=== PATIENT | female | born 1965 | race Caucasian/White ===

== ENCOUNTER → 2016-09-08 | Outpatient (CLI) | payer BC ==
--- NOTE | 2016-09-08 16:15 | KCIC ---
PROCEDURE Two-view chest. HISTORY Bronchitis, bilateral back pain, fever last week, smoker, on antibiotics and prednisone last week COMPARISON June 05, 2016 FINDINGS Two views of the chest are submitted. There is no new infiltrate, pleural fluid, pneumothorax. Heart size is stable, within normal limits. IMPRESSION No acute abnormality is identified by radiographs. Electronically signed by: Thong Mora MD (Sep 08, 2016 16:13:40)
== END | disposition home or self-care (01) ==
LOC: KCIC 15:43
PROVIDERS: ATTEND Physician Assistant
DX: J40 Bronchitis, not specified as acute or chronic (principal); M54.9 Dorsalgia, unspecified; R50.9 Fever, unspecified; F17.200 Nicotine dependence, unspecified, uncomplicated
CPT/HCPCS: 71020

== ENCOUNTER → 2018-04-11 | Outpatient (CLI) | payer OTHER ==
--- NOTE | 2018-04-11 14:05 | KCIC ---
CHEST PA LATERAL Clinical indications: Persistent cough for 3 weeks. Smoker for over 20 years. COMPARISON: September 08, 2016. Findings: No acute lung infiltrate or pleural effusion or pulmonary edema or lung mass or pneumothorax is seen. The heart size, pulmonary vasculature, mediastinum and both pablo are unremarkable. The osseous structures appear intact. Impression: No acute radiographic abnormality is seen. Electronically signed by: Khalif Cardenas MD (04/11/2018 2:02 PM) [facility] – [place], [place]
== END | disposition home or self-care (01) ==
LOC: KCIC 13:33
PROVIDERS: ATTEND Physician Assistant Medical
DX: F17.210 Nicotine dependence, cigarettes, uncomplicated (principal); R05 Cough
CPT/HCPCS: 71046

== ENCOUNTER → 2019-02-16 | Outpatient (CLI) | payer OTHER ==
--- NOTE | 2019-02-16 17:26 | KCIC ---
CHEST PA LATERAL, CLAVICLE RIGHT Clinical indications: Acute bronchitis. History of smoking. COMPARISON: April 11, 2018. Findings: No acute lung infiltrate or pleural effusion or pulmonary edema or lung mass or pneumothorax is seen. The heart size, pulmonary vasculature, mediastinum and both pablo are unremarkable. The osseous structures appear intact. Impression: No acute radiographic abnormality is seen. 2 VIEW STUDY OF THE RIGHT CLAVICLE Clinical indications: Subluxation of the right sternoclavicular joint. Painful right clavicle. FINDINGS: The superior-inferior position of the medial aspect of the right clavicle with respect to the sternum is symmetric with the left side. However, anterior/posterior subluxation/dislocation cannot be determined on this radiographic study but may be better evaluated with CT imaging if clinically needed. Otherwise no acute fracture is seen. No AC joint separation is seen. No lytic process is evident. IMPRESSION: No acute osseous abnormality. Electronically signed by: Khalif Cardenas MD (02/16/2019 5:23 PM) [id number]
== END | disposition home or self-care (01) ==
LOC: KCIC 14:36
PROVIDERS: ATTEND Physician Assistant Medical
DX: S43.201A Unspecified subluxation of right sternoclavicular joint, initial encounter (principal); J20.9 Acute bronchitis, unspecified; Z87.891 Personal history of nicotine dependence; X58.XXXA Exposure to other specified factors, initial encounter; Y93.89 Activity, other specified; Y92.89 Other specified places as the place of occurrence of the external cause; Y99.8 Other external cause status
CPT/HCPCS: 71046; 73000